=== PATIENT | male | born 1990 | race Caucasian/White ===

== ENCOUNTER 2018-05-02 21:43 | Emergency (ER) | payer SELFPAY ==
[~2018-05-02] VITALS: Ht 165.1 cm; Wt 63.5 kg
[2018-05-02 22:01] VITALS: BP 132/70; PULSE 96; RESP 16; TEMP 98.1; O2SAT 99
[2018-05-02] MEDS ORDERED: HUMI40KI SQ (22:42)
--- NOTE | 2018-05-02 22:42 | PD ---
HPI Chief Complaint: GI Complaint Time Seen by Provider: 22:41 Travel History International Travel<30 days: No Contact w/Intl Traveler<30days: No Traveled to known affect area: No History of Present Illness HPI Patient comes in complaining of diarrhea and left lower quadrant pain ongoing since last night. Describes the pain as sharp and crampy, 7-8 out of 10, associated with nausea but without any vomiting, patient is on Humira patient states that he has had a previous history of ulcerative colitis. Patient states allergies to Toradol, but he develops hives to it PFSH Past Medical History Gastrointestinal Disorders: Yes (Collitis) Past Surgical History Surgical History: No Previous Surgery Social History Alcohol Use: No Tobacco Use: No Substance Use: No Allergies-Medications (Allergen,Severity, Reaction): Coded Allergies: ketorolac (Verified Allergy, Severe, Hives, 05/02/18) Reported Meds & Prescriptions Reported Meds & Active Scripts Active Reported Humira 2-Pack Inj (Adalimumab 2-Pack Inj) 40 Mg/0.8 Ml Syr 80 Mg SQ Q7D Review of Systems General / Constitutional: No: Fever Eyes: No: Visual changes HENT: No: Headaches Cardiovascular: No: Chest Pain or Discomfort Respiratory: No: Shortness of Breath Gastrointestinal: Positive: Diarrhea, Abdominal Pain Genitourinary: No: Dysuria Musculoskeletal: No: Pain Skin: No Rash Neurologic: No: Weakness Psychiatric: No: Depression Endocrine: No: Polydipsia Hematologic/Lymphatic: No: Easy Bruising Physical Exam Narrative GENERAL: SKIN: Warm and dry. HEAD: Atraumatic. Normocephalic. EYES: Pupils equal and round. No scleral icterus. No injection or drainage. ENT: No nasal bleeding or discharge. Mucous membranes pink and moist. NECK: Trachea midline. No JVD. CARDIOVASCULAR: Regular rate and rhythm. RESPIRATORY: No accessory muscle use. Clear to auscultation. Breath sounds equal bilaterally. GASTROINTESTINAL: Abdomen soft, mild tenderness to palpation over the left lower quadrant , nondistended. Negative guarding/rigidity MUSCULOSKELETAL: Extremities without clubbing, cyanosis, or edema. No obvious deformities. NEUROLOGICAL: Awake and alert. No obvious cranial nerve deficits. Motor grossly within normal limits. Five out of 5 muscle strength in the arms and legs. Normal speech. PSYCHIATRIC: Appropriate mood and affect; insight and judgment normal. Data Data Last Documented VS Vital Signs Date Time Temp Pulse Resp B/P (MAP) Pulse Ox O2 Delivery O2 Flow Rate FiO2 05/02/18 22:01 98.1 96 16 132/70 (90) 99 Orders Orders Complete Blood Count With Diff (05/02/18 22:52) Comprehensive Metabolic Panel (05/02/18 22:52) Lipase (05/02/18 22:52) Urinalysis - C+S If Indicated (05/02/18:52) Ct Abd/Pel W/O Iv Contrast (05/02/18:52) Iv Access Insert/Monitor (05/02/18:52) Ecg Monitoring (05/02/18:52) Oximetry (05/02/18:52) NPO (05/02/18:52) Metronidazole 500 Mg Inj (Flagyl 500 Mg (05/02/18 23:00) Sodium Chlor 0.9% 1000 Ml Inj (Ns 1000 M (05/02/18 22:52) Sodium Chloride 0.9% Flush (Ns Flush) (05/02/18 23:00) Morphine Inj (Morphine Inj) (05/02/18 23:00) Ceftriaxone Inj (Rocephin Inj) (05/02/18 23:00) Methylprednisolone So Succ Inj (Solumedr (05/03/18 00:00) Labs Laboratory Tests Test 05/02/18 23:10 05/03/18 00:05 Blood Urea Nitrogen 9 MG/DL Creatinine 1.14 MG/DL Random Glucose 66 MG/DL Total Protein 10.1 GM/DL Albumin 5.4 GM/DL Calcium Level 9.8 MG/DL Alkaline Phosphatase 81 U/L Aspartate Amino Transf (AST/SGOT) 56 U/L Alanine Aminotransferase (ALT/SGPT) 27 U/L Total Bilirubin 0.4 MG/DL Sodium Level 139 MEQ/L Potassium Level 4.2 MEQ/L Chloride Level 102 MEQ/L Carbon Dioxide Level 28.3 MEQ/L Anion Gap 9 MEQ/L Estimat Glomerular Filtration Rate 76 ML/MIN Lipase 32 U/L White Blood Count 5.7 TH/MM3 Red Blood Count 3.85 MIL/MM3 Hemoglobin 10.1 GM/DL Hematocrit 31.5 % Mean Corpuscular Volume 81.9 FL Mean Corpuscular Hemoglobin 26.2 PG Mean Corpuscular Hemoglobin Concent 32.0 % Red Cell Distribution Width 18.8 % Platelet Count 396 TH/MM3 Mean Platelet Volume 7.7 FL Neutrophils (%) (Auto) 43.7 % Lymphocytes (%) (Auto) 35.4 % Monocytes (%) (Auto) 19.2 % Eosinophils (%) (Auto) 0.7 % Basophils (%) (Auto) 1.0 % Neutrophils # (Auto) 2.5 TH/MM3 Lymphocytes # (Auto) 2.0 TH/MM3 Monocytes # (Auto) 1.1 TH/MM3 Eosinophils # (Auto) 0.0 TH/MM3 Basophils # (Auto) 0.1 TH/MM3 CBC Comment DIFF FINAL Differential Comment MDM Medical Decision Making Medical Screen Exam Complete: Yes Emergency Medical Condition: Yes Medical Record Reviewed: Yes Differential Diagnosis Colitis versus abscess versus perforation versus appendicitis versus ureterolithiasis Narrative Course Patient has no leukocytosis, mild anemia of 09/12, normal platelet count of 386, 000, no left shift Electrolytes are all within normal limits Normal pancreatic and kidney functions. Normal total bilirubin and alkaline phosphatase, however slight elevation of AST of 56 and a normal ALT of 27. These changes are not significant enough to warrant an acute investigation in the ER. However the patient is advised to have these follow-up and evaluated by his primary CT abdomen and pelvis read by radiologist as large left renal calcification rest of the study is unremarkable Diagnosis Primary Impression: Colitis Patient Instructions: Colitis (ED), General Instructions Scripts Tramadol (Ultram) 50 Mg Tab 50 MG PO Q8H Y for PAIN for 3 Days, #9 TAB 0 Refills Prov: Kong Elam MD 05/03/18 Ondansetron Odt (Zofran Odt) 4 Mg Tab 4 MG SL Q6HR Y for Nausea/Vomiting, #20 TAB 0 Refills Prov: Kong Elam MD 05/03/18 Metronidazole (Flagyl) 500 Mg Tab 500 MG PO TID for Infection for 10 Days, #30 TAB 0 Refills Prov: Kong Elam MD 05/03/18 Disposition: 01 DISCHARGE HOME Condition: Stable Kong Elam MD May 02, 2018 22:42
[2018-05-02] MEDS ORDERED: SODIUM CHLOR 0.9% 1000 ML INJ 1,000 ML IV SCH (22:52)
[2018-05-02] MEDS ORDERED: SODIUM CHLORIDE 0.9% FLUSH 10 ML FLUSH IV FLUSH PRN (23:00)
[2018-05-02] MEDS ORDERED: cefTRIAXone INJ 1,000 MG in SODIUM CHLORIDE 0.9% INJ 100 ML IV ONE (23:00)
[2018-05-02] MEDS ORDERED: MORPHINE SULFATE 4 MG/ML INJ IV PUSH ONE (23:00)
[2018-05-02] MEDS ORDERED: metroNIDAZOLE 500 MG INJ 100 ML IV ONE (23:00)
--- NOTE | 2018-05-02 23:44 | RADRPT ---
EXAM DATE: 05/02/2018 11:37 PM EDT AGE/SEX: 27 years / Male INDICATIONS: Abdomen pain. CLINICAL DATA: This is the patient's initial encounter. Patient reports that signs and symptoms have been present for 1 day and indicates a pain score of 7/10. MEDICAL/SURGICAL HISTORY: . Colitis None. RADIATION DOSE: 6.57 CTDI (mGy) COMPARISON: No prior exams available for comparison. TECHNIQUE: Multiple contiguous axial images were obtained through the abdomen. Images were obtained using multiple row detector helical technique. Using automated exposure control and adjustment of the mA and/or kV according to patient size, radiation dose was kept as low as reasonably achievable to o btain optimal diagnostic quality images. DICOM format image data is available electronically for rev iew and comparison. FINDINGS: Lower Lungs: The visualized lower lungs are clear. Liver: The liver has a homogeneous density without space-occupying lesion. There is no dilation of th e biliary tree. Spleen: Homogeneous density without enlargement. Pancreas: Unremarkable without mass or calcification. Kidneys: Normal in size and shape. No evidence of mass or hydronephrosis except prominent cortical c alcification left kidney. Adrenal Glands: Unremarkable. Aorta: The aorta and proximal iliac vessels are grossly unremarkable without aneurysmal dilation. Bowel/Mesentery: The bowel loops are grossly unremarkable. The cecum and sigmoid colon have a normal configuration. Abdominal Wall: Intact. Retroperitoneum: No evidence of adenopathy in the retrocrural, para-aortic, or deep pelvic regions. Bladder: Contours are smooth. Reproductive Organs: No abnormal masses or calcifications seen. Inguinal: The inguinal region is unremarkable without evidence of adenopathy. Bony Structures: Unremarkable. CONCLUSION: 1. Large left renal calcification. Rest of the study is unremarkable. Electronically signed by: Ambrosio Johnson MD 05/02/2018 11:43 PM EDT
[2018-05-02 23:45] LABS: ALKALINE PHOSPHATASE 81 U/L (45-117); TOTAL BILIRUBIN ADULT 0.4 MG/DL (0.2-1.0); TOTAL PROTEIN 10.1 GM/DL (6.4-8.2)
[2018-05-02 23:46] LABS: ALBUMIN 5.4 GM/DL (3.4-5.0); ALT (GPT) 27 U/L (12-78); AST (GOT) 56 U/L (15-37); BICARBONATE 28.3 MEQ/L (21.0-32.0); BLOOD UREA NITROGEN 9 MG/DL (7-18); CALCIUM 9.8 MG/DL (8.5-10.1); CHLORIDE 102 MEQ/L (98-107); CREATININE 1.14 MG/DL (0.60-1.30); GLOMERULAR FILTRATION RATE 76 ML/MIN (>89); GLUCOSE,RANDOM 66 MG/DL (74-106); SODIUM (NA) 139 MEQ/L (136-145)
[2018-05-03] MEDS ORDERED: methylPREDNISolone SOD SUCC 125 MG/2 ML VIAL IV PUSH ONE
[2018-05-03 00:34] LABS: AUTOMATED NEUTROPHIL # 2.5 TH/MM3 (1.8-7.7); BASOPHIL # 0.1 TH/MM3 (0-0.2); EOSINOPHIL % 0.7 % (0.0-4.0); HEMATOCRIT 31.5 % (39.0-51.0); HEMOGLOBIN 10.1 GM/DL (13.0-17.0); LYMPH % 35.4 % (9.0-44.0); MEAN CELL VOLUME 81.9 FL (80.0-100.0); MEAN CORPUSCULAR HEMOGLOBIN 26.2 PG (27.0-34.0); MEAN PLATELET VOLUME 7.7 FL (7.0-11.0); MONO % 19.2 % (0.0-8.0); MONOCYTE # 1.1 TH/MM3 (0-0.9); NEUT % 43.7 % (16.0-70.0); PLATELET COUNT 396 TH/MM3 (150-450); RED BLOOD COUNT 3.85 MIL/MM3 (4.50-5.90); RED CELL DISTRIBUTION WIDTH 18.8 % (11.6-17.2); WHITE BLOOD COUNT 5.7 TH/MM3 (4.0-11.0)
[2018-05-03] MEDS ORDERED: ZOFR4TAB3 SL (00:54)
[2018-05-03] MEDS ORDERED: METR-1 PO (00:54)
[2018-05-03] MEDS ORDERED: TRAM50 PO (00:54)
[2018-05-03] MEDS ORDERED: MORPHINE SULFATE 4 MG/ML INJ IV PUSH ONE (01:00)
[2018-05-03] MEDS ORDERED: SODIUM CHLORIDE 0.9% FLUSH 10 ML FLUSH IV FLUSH PRN (01:00)
[2018-05-03] MEDS ORDERED: DICYCLOMINE HCL 20 MG/2 ML VIAL IM ONE (01:00)
[2018-05-03] MEDS ORDERED: PERC5TAB12 PO (03:15)
== END 2018-05-03 03:25 | disposition home or self-care (01) ==
LOC: NEPC 21:43
DX: K51.90 Ulcerative colitis, unspecified, without complications (principal); D64.9 Anemia, unspecified
CPT/HCPCS: 74176; 80053; 83690; 85025; 96372; 96374; 96375; 96376; 99284; J0500; J0696; J2270; J2930; J7030